=== PATIENT | male | born 1950 | race Caucasian/White ===

== ENCOUNTER → 2020-01-29 10:46 | Outpatient (BNVA) | payer MEDICARE, MEDICAID, SELFPAY | PROVIDERS: PCP Dermatology; Referring Provider Physician Assistant Medical; Visit Provider Dermatology | DX: L30.0 Nummular dermatitis (principal); L82.1 Other seborrheic keratosis | CPT/HCPCS: 99202; 99203 ==

== ENCOUNTER 2023-09-04 13:03 | Emergency (ER) | payer MEDICARE, MEDICAID, SELFPAY ==
--- NOTE | 2023-09-04 13:05 | XR_ITS ---
WS: [id number] Exam: XR chest 1V portable [id number] Date/Time of Exam: 09/04/2023 1:11 PM Reason For Exam: cough No priors. Lungs are hyperinflated and clear. Normal cardiomediastinal silhouette. Regional bony elements are in tact. No pleural effusions. IMPRESSION: 1. Pulmonary hyperinflation. No acute process.
[2023-09-04 13:16] VITALS: BP 154/78; PULSE 76; RESP 16; TEMP 36.7; O2SAT 97
--- NOTE | 2023-09-04 13:58 | ED_ITS ---
HPI - URI/Sore Throat General: Chief Complaint: Upper Respiratory Infection Stated Complaint: cough Time Seen by Provider: 09/04/23 13:23 Source: patient Mode of arrival: ambulatory Limitations: no limitations History of Present Illness: Patient is a 73-year-old male who presents to the ED today with a complaint of upper respiratory-like symptoms. Patient's personality is very odd. 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 States he immediately started coughing and it has apparently continued until 3 days and 3 nights ago when it subsided. Patient states he has not had any further cough since then. When asked what brought him to seek medical attention today he tells me that he is still having a small amount of phlegm. He does not complain of any shortness of breath or difficulty breathing. He also forgot to tell me about an incident back in February when he got stung by multiple yellow jackets and states I thought that might have something to do with it . MD elicited complaint: cough and other (chest congestion) Onset (ago): day(s) Consistency: improved and now resolved (cough has resolved) Severity: mild Description of mucous: yellow and green Able to tolerate fluids by mouth: Yes Exacerbating factors: nothing Relieving factors: nothing Associated symptoms: Reports no associated symptoms; Deny chills, diarrhea, fever(s), nasal congestion, nausea, sinus pain or vomiting Treatments prior to arrival: none Review of Systems Const: Denies: fever(s), chills, body aches, fatigue or malaise ENMT: Denies: throat pain, odynophagia, nasal discharge, nasal congestion or sinus pain Resp: Reports: chest congestion; Denies: dyspnea, wheezing, pain on inspiration or hemoptysis GI: Denies: nausea, vomiting or diarrhea Musc: Denies: extremity swelling Neuro: Denies: dizziness PFSH ED PFSH: Social History Smoking and tobacco/nicotine status: former use of tobacco/nicotine Alcohol intake: never Physical Exam Const: COMMON NORMALS: no acute distress, average body habitus, patient oriented x3, no limitations, healthy appearing, alert and well nourished HENMT: FACE & SINUS: normal facial exam and sinuses nontender Resp: COMMON NORMALS: normal respiratory effort and clear to auscultation bilaterally AUSCULTATION: clear to auscultation bilaterally Cardio: COMMON NORMALS: regular rate and regular rhythm RATE: regular rate RHYTHM: regular rhythm Neuro: COMMON NORMALS: patient oriented x3 SENSORIUM/ORIENTATION: Yes alert Course Vital Signs: Vital signs: Vital Signs Temperature 98.0 F 09/04/23 13:16 Pulse Rate 76 09/04/23 13:16 Respiratory Rate 16 09/04/23 13:16 Blood Pressure 154/78 09/04/23 13:16 Pulse Oximetry 97 09/04/23 13:16 MDM - URI/Sore Throat Medical Decision Making Patient appears in no acute distress. His vital signs are stable. CXR is unremarkable. Respiratory panel collected and pending. Most likely viral etiology for his symptoms. It seems like symptoms are improving on their own. Recommended Mucinex and/for allergy medication for treatment of his phlegm. He can follow-up with PCP in 1 to 2 weeks. Differential Diagnosis Likely upper respiratory infection, croup, sinusitis, viral infection, bronchitis, influenza and pharyngitis All radiology interpretation(s) finalized by discharge Discharge Plan Discharge Patient Disposition: Home Clinical Impression: Upper respiratory infection Condition: Stable Prescriptions: No Action triamcinolone acetonide 0.025 % cream 1 applic TOPICAL BID betamethasone dipropionate 0.05 % ointment 1 applic TOPICAL BID Qty: 45 1RF Rx Instructions: Apply twice daily to affected areas on back of legs x4 weeks until follow-up Discharge Orders: Discharge ED (Routine); Ordered 09/04/23 Ordered By: Ingrid Fu Patient Instructions: Upper Respiratory Infection (DC) Activity Restrictions/Additional Instructions: As we discussed it seems like your upper respiratory infection is improving. As we discussed you may take Mucinex to help with congestion and an [id number] allergy medication such as Dilma or Zyrtec. You may follow- up with primary care in 1 to 2 weeks if symptoms persist. 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
[2023-09-04 16:03] LABS: Adenovirus Not Detected (NOT DETECT); Chlamydia Pneumoniae Not Detected (NOT DETECT); Coronavirus 229E,HKU1,NL63,OC4 Not Detected (NOT DETECT); Human Metapneumovirus Not Detected (NOT DETECT); Human Rhinovirus/Enterovirus Not Detected (NOT DETECT); Influenza A Not Detected (NOT DETECT); Influenza A H1 Not Detected (NOT DETECT); Influenza A H1-2009 Not Detected (NOT DETECT); Influenza A H3 Not Detected (NOT DETECT); Influenza B Not Detected (NOT DETECT); Mycoplasma Pneumoniae Not Detected (NOT DETECT); Parainfluenza Virus Type 1 Not Detected (NOT DETECT); Parainfluenza Virus Type 2 Not Detected (NOT DETECT); Parainfluenza Virus Type 3 Not Detected (NOT DETECT); Parainfluenza Virus Type 4 Not Detected (NOT DETECT); Respiratory Syncytial Virus A Not Detected (NOT DETECT); Respiratory Syncytial Virus B Not Detected (NOT DETECT); SARS-COV-2 Not Detected (NOT DETECT)
== END 2023-09-04 14:19 | disposition home or self-care (01) ==
PROVIDERS: Emergency Provider Physician Assistant
DX: J06.9 Acute upper respiratory infection, unspecified (principal); Z87.891 Personal history of nicotine dependence
CPT/HCPCS: 71045; 87486; 87581; 87633; 99284